=== PATIENT | male | born 1980 | race American Indian/Alaskan Native ===

== ENCOUNTER 2017-08-03 10:53 | Emergency (ER) | payer SELFPAY ==
[2017-08-03 10:59] VITALS: BP 132/82
[2017-08-03] MEDS ORDERED: TORADOL IM ONE (11:19)
--- NOTE | 2017-08-03 11:21 | Emergency Department Report ---
ED ENT HPI - General Chief complaint: Dental/Oral Stated complaint: MOUTH & EAR PAIN Time Seen by Provider: 08/03/17 11:14 Source: patient Mode of arrival: Ambulatory Limitations: No Limitations - History of Present Illness Initial comments: This is a 36-year-old male nontoxic, well nourished in appearance, no acute signs of distress presents to the ED with c/o of right upper toothache 3 days. Patient denies following up with a dentist. Patient stated that pain radiates from his job to his right ear region. Patient otherwise denies any head trauma. Patient describes toothache as aching level of 8 out of 10. Patient denies any facial swelling. Patient denies any numbness, tingling, fever, chills, headache, stiff neck, abdominal pain, chest pain, shortness of breath. Patient denies any drug allergies or significant past medical history. MD complaint: tooth pain -: days(s) (3) Location: tooth # 1 - pain Severity: mild Severity scale (0 -10): 8 Quality: aching Consistency: constant Improves with: none Worsens with: none Context- Dental: poor dental care Associated Symptoms: gum swelling, toothache. denies: fever, cough, pain with swallowing, sore throat, tinnitus, hearing loss, discharge from ear, rhinorrhea - Related Data Previous Rx's Medication Instructions Recorded Last Taken Type Ondansetron [Zofran Odt] 4 mg PO Q8H PRN #12 tab.rapdis 02/12/15 Unknown Rx Ranitidine HCl [Zantac 150 MG TAB] 150 mg PO BID #30 tablet 02/12/15 Unknown Rx Chlorhexidine Mouthwash [Peridex] 15 ml MM BID #1 bottle 08/03/17 Unknown Rx Clindamycin [Clindamycin CAP] 300 mg PO Q8H 7 Days cap 08/03/17 Unknown Rx Ibuprofen [Motrin] 600 mg PO Q8H PRN #30 tablet 08/03/17 Unknown Rx traMADol [Ultram] 50 mg PO Q6HR PRN #12 tablet 08/03/17 Unknown Rx Allergies Allergy/AdvReac Type Severity Reaction Status Date / Time No Known Allergies Allergy Verified 02/12/15 11:34 ED Dental HPI - General Chief complaint: Dental/Oral Stated complaint: MOUTH & EAR PAIN Time Seen by Provider: 08/03/17 11:14 Source: patient Mode of arrival: Ambulatory Limitations: No Limitations - Related Data Previous Rx's Medication Instructions Recorded Last Taken Type Ondansetron [Zofran Odt] 4 mg PO Q8H PRN #12 tab.rapdis 02/12/15 Unknown Rx Ranitidine HCl [Zantac 150 MG TAB] 150 mg PO BID #30 tablet 02/12/15 Unknown Rx Chlorhexidine Mouthwash [Peridex] 15 ml MM BID #1 bottle 08/03/17 Unknown Rx Clindamycin [Clindamycin CAP] 300 mg PO Q8H 7 Days cap 08/03/17 Unknown Rx Ibuprofen [Motrin] 600 mg PO Q8H PRN #30 tablet 08/03/17 Unknown Rx traMADol [Ultram] 50 mg PO Q6HR PRN #12 tablet 08/03/17 Unknown Rx Allergies Allergy/AdvReac Type Severity Reaction Status Date / Time No Known Allergies Allergy Verified 02/12/15 11:34 ED Review of Systems ROS: Stated complaint: MOUTH & EAR PAIN Other details as noted in HPI Constitutional: denies: chills, fever Eyes: denies: eye pain, eye discharge, vision change ENT: dental pain. denies: ear pain, throat pain Respiratory: denies: cough, shortness of breath, wheezing Cardiovascular: denies: chest pain, palpitations Endocrine: no symptoms reported Gastrointestinal: denies: abdominal pain, nausea, diarrhea Genitourinary: denies: urgency, dysuria Musculoskeletal: denies: back pain, joint swelling, arthralgia Skin: denies: rash, lesions Neurological: denies: headache, weakness, paresthesias Psychiatric: denies: anxiety, depression Hematological/Lymphatic: denies: easy bleeding, easy bruising ED Past Medical Hx - Past Medical History Previous Medical History?: No - Surgical History Past Surgical History?: Yes Additional Surgical History: LEFT COLLAR BONE - Social History Smoking Status: Current Every Day Smoker Substance Use Type: None - Medications Home Medications: Home Medications Medication Instructions Recorded Confirmed Last Taken Type Ondansetron [Zofran Odt] 4 mg PO Q8H PRN #12 tab.rapdis 02/12/15 Unknown Rx Ranitidine HCl [Zantac 150 MG TAB] 150 mg PO BID #30 tablet 02/12/15 Unknown Rx Chlorhexidine Mouthwash [Peridex] 15 ml MM BID #1 bottle 08/03/17 Unknown Rx Clindamycin [Clindamycin CAP] 300 mg PO Q8H 7 Days cap 08/03/17 Unknown Rx Ibuprofen [Motrin] 600 mg PO Q8H PRN #30 tablet 08/03/17 Unknown Rx traMADol [Ultram] 50 mg PO Q6HR PRN #12 tablet 08/03/17 Unknown Rx ED Physical Exam - General Limitations: No Limitations General appearance: alert, in no apparent distress - Head Head exam: Present: atraumatic, normocephalic - Eye Eye exam: Present: normal appearance Pupils: Present: normal accommodation - ENT ENT exam: Present: mucous membranes moist, TM's normal bilaterally, normal external ear exam - Expanded ENT Exam Expanded Ear exam: Present: normal external inspection Mouth exam: Present: normal external inspection, tongue normal. Absent: drooling, trismus, muffled voice, tongue elevation, laceration Teeth exam: Present: dental caries, dental tenderness #, gingival enlargement, other (No facial swelling. ) Throat exam: Positive: normal inspection, other (Uvula midline. No abscess or swelling noted. ). Negative: tonsillar erythema, tonsillomegaly, tonsillar exudate, R peritonsillar mass, L peritonsillar mass - Neck Neck exam: Present: normal inspection, full ROM. Absent: tenderness, meningismus, lymphadenopathy - Respiratory Respiratory exam: Present: normal lung sounds bilaterally. Absent: respiratory distress, wheezes, rales, rhonchi, stridor, chest wall tenderness, accessory muscle use, decreased breath sounds, prolonged expiratory - Cardiovascular Cardiovascular Exam: Present: regular rate, normal rhythm, normal heart sounds. Absent: bradycardia, tachycardia, irregular rhythm, systolic murmur, diastolic murmur, rubs, gallop - GI/Abdominal GI/Abdominal exam: Present: soft, normal bowel sounds. Absent: distended, tenderness, guarding, rebound, rigid, diminished bowel sounds - Rectal Rectal exam: Present: deferred - Extremities Exam Extremities exam: Present: normal inspection, full ROM, normal capillary refill. Absent: tenderness - Back Exam Back exam: Present: normal inspection, full ROM. Absent: CVA tenderness (R) - Neurological Exam Neurological exam: Present: alert, oriented X3, CN II-XII intact, normal gait - Psychiatric Psychiatric exam: Present: normal affect, normal mood - Skin Skin exam: Present: warm, dry, intact, normal color. Absent: rash ED Course Vital Signs 08/03/17 10:57 Temperature 98.7 F Pulse Rate 81 Respiratory 16 Rate Blood Pressure 132/82 O2 Sat by Pulse 98 Oximetry - Reevaluation(s) Reevaluation #1: 08/03/17 11:19 Patient is speaking in full sentences with no signs of distress noted. Critical care attestation.: If time is entered above; I have spent that time in minutes in the direct care of this critically ill patient, excluding procedure time. ED Disposition Clinical Impression: Dental caries, Gingivitis Disposition: - TO HOME OR SELFCARE Is pt being admited?: No Does the pt Need Aspirin: No Condition: Stable Instructions: Dental Caries (ED), Gingivitis (ED), Griseofulvin (By mouth), Clindamycin (By mouth) Additional Instructions: Follow-up with a dentist in 3-5 days or if symptoms worsen and continue return to emergency room as soon as possible. Prescriptions: Chlorhexidine Mouthwash [Peridex] 15 ml MM BID #1 bottle Clindamycin [Clindamycin CAP] 300 mg PO Q8H 7 Days cap Ibuprofen [Motrin] 600 mg PO Q8H PRN #30 tablet PRN Reason: Pain traMADol [Ultram] 50 mg PO Q6HR PRN #12 tablet PRN Reason: Pain Referrals: PRIMARY CARE, [Referring] - 3-5 Days REGLA PERERA MD [Staff Physician] - 3-5 Days [facility] [Outside] - 3-5 Days Forms: Work/School Release Form(ED)
== END 2017-08-03 11:32 | disposition home or self-care (01) ==
LOC: ED 10:53
DX: K05.10 Chronic gingivitis, plaque induced (principal); F17.200 Nicotine dependence, unspecified, uncomplicated
CPT/HCPCS: 96372; 99282; J1885

== ENCOUNTER 2017-10-13 11:53 | Emergency (ER) | payer SELFPAY ==
[2017-10-13 11:59] VITALS: BP 118/87
--- NOTE | 2017-10-13 13:27 | Emergency Department Report ---
ED Neck Pain/Injury HPI - General Chief Complaint: Neck Pain/Injury Stated Complaint: NECK PAIN/STIFFNESS Time Seen by Provider: 10/13/17 12:48 Source: patient, family Mode of arrival: Ambulatory Limitations: No Limitations - History of Present Illness Initial Comments: This is 36-year-old male patient complaining of right neck pain and stiffness that started 2 weeks ago. He said neck pain is worsening over the last 2 days. Denies any nausea or vomiting. Denies any fevers chills. Pain is 8 out of 10 in all indicate to 2 side of right neck. Denies any pain to the posterior neck. Pain feels achy worse with movement better with rest. He states that he took [id number] medication which helps. Denies any numbness or treatments or extremities. Denies any headache. MD Complaint: neck pain Onset/Timin -: week(s) Place: home Radiation: right lateral Severity: moderate, intermittent, similar to prior neck ashley Severity scale (0 -10): 8 Quality: aching Consistency: intermittent Improves With: medication OTC/prescribe, other (rest) Worsens With: movement of neck Context: unknown Associated Symptoms: denies: headache, fever, numbness, tingling, weakness, vertigo, difficulty walking, swollen glands, difficulty swallowing, nausea, vomiting Treatments Prior to Arrival: Acetaminophen - Related Data Previous Rx's Medication Instructions Recorded Last Taken Type Ondansetron [Zofran Odt] 4 mg PO Q8H PRN #12 tab.rapdis 02/12/15 Unknown Rx Ranitidine HCl [Zantac 150 MG TAB] 150 mg PO BID #30 tablet 02/12/15 Unknown Rx Chlorhexidine Mouthwash [Peridex] 15 ml MM BID #1 bottle 08/03/17 Unknown Rx Clindamycin [Clindamycin CAP] 300 mg PO Q8H 7 Days cap 08/03/17 Unknown Rx traMADol [Ultram] 50 mg PO Q6HR PRN #12 tablet 08/03/17 Unknown Rx Cyclobenzaprine [Flexeril] 10 mg PO TID PRN #15 tablet 10/13/17 Unknown Rx Ibuprofen [Motrin 600 MG tab] 600 mg PO Q8H PRN #15 tablet 10/13/17 Unknown Rx Allergies Allergy/AdvReac Type Severity Reaction Status Date / Time No Known Allergies Allergy Verified 02/12/15 11:34 ED Review of Systems ROS: Stated complaint: NECK PAIN/STIFFNESS Other details as noted in HPI Constitutional: denies: chills, fever Eyes: denies: eye pain, eye discharge, vision change ENT: denies: ear pain, throat pain, epistaxis, congestion Respiratory: denies: cough, shortness of breath, SOB with exertion, SOB at rest , stridor, wheezing Cardiovascular: denies: chest pain, palpitations, edema, syncope Gastrointestinal: denies: abdominal pain, nausea, vomiting, diarrhea Musculoskeletal: myalgia. denies: back pain, joint swelling, arthralgia Skin: denies: rash, lesions Neurological: denies: headache, weakness, numbness, paresthesias, confusion, abnormal gait, vertigo ED Past Medical Hx - Past Medical History Previous Medical History?: No - Surgical History Past Surgical History?: Yes Additional Surgical History: LEFT COLLAR BONE - Family History Family history: no significant - Social History Smoking Status: Current Every Day Smoker Substance Use Type: Alcohol, Cocaine, Marijuana - Medications Home Medications: Home Medications Medication Instructions Recorded Confirmed Last Taken Type Ondansetron [Zofran Odt] 4 mg PO Q8H PRN #12 tab.rapdis 02/12/15 Unknown Rx Ranitidine HCl [Zantac 150 MG TAB] 150 mg PO BID #30 tablet 02/12/15 Unknown Rx Chlorhexidine Mouthwash [Peridex] 15 ml MM BID #1 bottle 08/03/17 Unknown Rx Clindamycin [Clindamycin CAP] 300 mg PO Q8H 7 Days cap 08/03/17 Unknown Rx traMADol [Ultram] 50 mg PO Q6HR PRN #12 tablet 08/03/17 Unknown Rx Cyclobenzaprine [Flexeril] 10 mg PO TID PRN #15 tablet 10/13/17 Unknown Rx Ibuprofen [Motrin 600 MG tab] 600 mg PO Q8H PRN #15 tablet 10/13/17 Unknown Rx ED Physical Exam - General Limitations: No Limitations General appearance: alert, in no apparent distress - Head Head exam: Present: atraumatic, normocephalic, normal inspection, other (normal exam) - Eye Eye exam: Present: normal appearance, PERRL, EOMI. Absent: nystagmus, periorbital swelling, periorbital tenderness Pupils: Present: normal accommodation - ENT ENT exam: Present: normal exam, normal orophraynx, mucous membranes moist, TM's normal bilaterally, normal external ear exam - Neck Neck exam: Present: normal inspection, full ROM, other (no C-spine tenderness). Absent: tenderness, meningismus, lymphadenopathy, thyromegaly - Expanded Neck Exam Expanded Neck exam: Absent: tenderness, midline deformity, anterior neck swelling, thyroid mass, carotid bruit, tracheal deviation - Respiratory Respiratory exam: Present: normal lung sounds bilaterally. Absent: respiratory distress, chest wall tenderness - Cardiovascular Cardiovascular Exam: Present: regular rate, normal rhythm, normal heart sounds. Absent: systolic murmur, diastolic murmur - GI/Abdominal GI/Abdominal exam: Present: soft, normal bowel sounds. Absent: distended, tenderness - Extremities Exam Extremities exam: Present: normal inspection, full ROM, normal capillary refill , other (no clubbing, cyanosis or edema. +2 pulses or extremities and no neurovascular compromise). Absent: tenderness, pedal edema, joint swelling, calf tenderness - Back Exam Back exam: Present: normal inspection, full ROM, other (ambulates without any difficulties). Absent: tenderness, CVA tenderness (R), CVA tenderness (L), muscle spasm, paraspinal tenderness, vertebral tenderness, rash noted - Neurological Exam Neurological exam: Present: alert, oriented X3, normal gait, reflexes normal, other (no focal neurological deficits). Absent: motor sensory deficit - Psychiatric Psychiatric exam: Present: normal affect, normal mood - Skin Skin exam: Present: warm, dry, intact, normal color. Absent: rash ED Course Vital Signs 10/13/17 10/13/17 10/13/17 11:55 13:48 14:19 Temperature 99.7 F H 98.7 F Pulse Rate 86 Respiratory 18 18 Rate Blood Pressure 118/87 O2 Sat by Pulse 100 Oximetry - Reevaluation(s) Reevaluation #1: 10/13/17 15:07 Patient given hydrocodone 5/325 mg 2 tablets by mouth, Motrin 600 mg by mouth and Flexeril 10 mg by mouth relief of pain to right neck. ED Medical Decision Making - Radiology Data Radiology results: report reviewed X-ray C-spine 2-3 views dictated by radiologist report reviewed by myself. Please see report below. Patient: CHUCKIE GOLD JR MR#: [id number] : 1980 Acct:[id number] Age/Sex: 36 / M ADM Date: 10/13/17 Loc: ED Attending Dr: Ordering Physician: BELLA PAVON Date of Service: 10/13/17 Procedure(s): XR spine cervical 2-3V Accession Number(s): [id number] cc: BELLA PAVON Fluoro Time In Minutes: CERVICAL SPINE RADIOGRAPHS INDICATION: Neck pain for 2 weeks. COMPARISON: None similar. FINDINGS: AP, lateral and open-mouth views of the cervical spine demonstrate dens tip obscured due to overlying skull, though unremarkable inferiorly as also the lateral masses. Intact craniocervical articulation on the lateral view with normal prevertebral soft tissues and airway. Normal vertebral body stature and alignment with visualization upto C6-C7 disc on the lateral view; more inferior levels hazy/obscured due to shoulder soft tissues. Mild C5 and C6 degenerative spurring. Grossly uniform disc heights. Clear imaged lung apices. CONCLUSION: No acute radiographic abnormality with mild mid to lower cervical spine degenerative changes, as described. Thank you for the opportunity to participate in this patient's care. Transcribed By: RS Dictated By: MARYCARMEN ODONNELL MD Electronically Authenticated By: MARYCARMEN ODONNELL MD Signed Date/Time: 10/13/17 135 DD/ 135 TD/TT: 10/13/17 135 - Medical Decision Making Mild C5 and C6 degenerative spurring. Grossly uniform disc heights. Clear imaged lung apices. Critical care attestation.: If time is entered above; I have spent that time in minutes in the direct care of this critically ill patient, excluding procedure time. ED Disposition Clinical Impression: Neck pain on right side, Degenerative cervical disc Disposition: DC-01 TO HOME OR SELFCARE Is pt being admited?: No Does the pt Need Aspirin: No Condition: Stable Instructions: Muscle Strain (ED), Degenerative Disc Disease (ED) Additional Instructions: Please follow up with orthopedic doctor as instructed. Follow up with primary care physician and if he do not have a primary care physician follow-up with [facility] Take Flexeril for muscle strain but please do not drive or operate heavy machinery or take his medication as it causes drowsiness Take Motrin as anti-inflammatory. Please take this medication with food to prevent irritation to the stomach lining If your condition worsens, please return to emergency room Prescriptions: Cyclobenzaprine [Flexeril] 10 mg PO TID PRN #15 tablet PRN Reason: Muscle Spasm Ibuprofen [Motrin 600 MG tab] 600 mg PO Q8H PRN #15 tablet PRN Reason: Pain Referrals: PRIMARY CAREMD [Primary Care Provider] - 10/14/17 [facility] [Outside] - 10/14/17 GRISELDA AVERY MD [Staff Physician] - 10/17/17 Forms: Work/School Release Form(ED)
[2017-10-13] MEDS ORDERED: NORCO 5/325 PO ONE (13:28)
[2017-10-13] MEDS ORDERED: FLEXERIL PO ONE (13:28)
[2017-10-13] MEDS ORDERED: MOTRIN PO ONE (13:28)
--- NOTE | 2017-10-13 14:01 | XRay Report ---
CERVICAL SPINE RADIOGRAPHS INDICATION: Neck pain for 2 weeks. COMPARISON: None similar. FINDINGS: AP, lateral and open-mouth views of the cervical spine demonstrate dens tip obscured due to overlying skull, though unremarkable inferiorly as also the lateral masses. Intact craniocervical articulation on the lateral view with normal prevertebral soft tissues and airway. Normal vertebral body stature and alignment with visualization upto C6-C7 disc on the lateral view; more inferior levels hazy/obscured due to shoulder soft tissues. Mild C5 and C6 degenerative spurring. Grossly uniform disc heights. Clear imaged lung apices. CONCLUSION: No acute radiographic abnormality with mild mid to lower cervical spine degenerative changes, as described. Thank you for the opportunity to participate in this patient's care.
== END 2017-10-13 15:27 | disposition home or self-care (01) ==
LOC: ED 11:53
DX: M50.322 Other cervical disc degeneration at C5-C6 level (principal); F17.200 Nicotine dependence, unspecified, uncomplicated; F12.10 Cannabis abuse, uncomplicated; F14.10 Cocaine abuse, uncomplicated
CPT/HCPCS: 72040; 99283